=== PATIENT | female | born 1950 | race Caucasian/White ===

== ENCOUNTER → 2018-05-04 | Outpatient (CLI) | payer MEDICARE, BC ==
--- NOTE | 2018-05-04 14:56 | REP ---
Bilateral mammogram with 3D tomosynthesis, diagnostic mammogram left breast and left breast ultrasound} Bilateral mammogram performed with 3D tomosynthesis. The patient has had a palpable lump in the inferomedial left breast since the January 2018. The area is marked on the skin with a triangular marker. Additional spot compression views of that area are performed. Moderate fibroglandular tissue is again seen bilaterally. There is no change since the prior study of 12/13/2010. No new mass or architectural distortion is seen. No clustered microcalcifications are seen. Real-time sonographic evaluation of left breast performed at the site of the palpable lump in the region of about 8-o'clock position, left breast. No cystic or solid nodule is seen. IMPRESSION: BIRADS 2: BI-RADS/ACR category 2 mammogram. Benign Findings. ACR 2 benign. No mass or clustered microcalcifications. There is no mammographic or sonographic evidence of a mass at the site of the reported palpable abnormality in the region of 8 o'clock left breast. Negative mammogram and ultrasound should not deter biopsy if there is a clinically suspicious palpable mass present. Followup mammogram recommended in 1 year. Electronically Signed by Nathan Neely MD 05/04/2018 03:29 P
== END ==
LOC: M RAD 13:00
PROVIDERS: ATTEND Nurse Practitioner Family
DX: Z12.31 Encounter for screening mammogram for malignant neoplasm of breast (principal)
CPT/HCPCS: 76642; 77066; G0279

== ENCOUNTER → 2019-06-11 | Outpatient (REF) | LOC: M LABCFH 14:30 | PROVIDERS: ATTEND Internal Medicine | DX: L98.9 Disorder of the skin and subcutaneous tissue, unspecified (principal) ==

== ENCOUNTER → 2019-09-29 | Outpatient (CLI) | payer MEDICARE, BC ==
--- NOTE | 2019-10-02 12:10 | REPMRS ---
Patient History The patient states she had a clinical breast exam in June 2019. Patient is postmenopausal, has history of skin cancer at age 69, has history of ovarian cancer at age 59, and has history of cancer in the left breast at age 49. Family history of colorectal cancer at age 86 in mother, unknown cancer at age 85 in father, unknown cancer at age 87 in maternal uncle. Digital Woman Screen Mammo: September 29, 2019 - Exam #: [id number] Bilateral CC and MLO view(s) were taken. Technologist: Kya Conway, Technologist Prior study comparison: May 04, 2018, digital mammo diagnostic bilateral, performed at [facility]. September 18, 2016, bilateral digital mammo screening bilat, performed at [facility]. December 12, 2014, bilateral digital mammo screening bilat, performed at [facility]. FINDINGS: There are scattered fibroglandular densities. The Volpara volumetric breast density category is:B. There are stable post treatment changes in the left breast. There has been no change in the appearance of the mammogram from the prior studies. There is a mild amount of scattered fibroglandular density which is fairly symmetric. There is no interval development of dominant mass, architectural distortion, or grouped microcalcification suggestive of malignancy. 3-D tomosynthesis shows no additional findings. Assessment: BI-RADS/ACR category 2 mammogram. Benign Findings. Recommendation Routine screening mammogram of both breasts in 1 year (for women over age 40). This mammogram was interpreted with the aid of an FDA-approved computer-aided dectection system. Electronically Signed By: Michael Friedman MD 10/02/19 [id number]
== END ==
LOC: M WHC 12:36
PROVIDERS: ATTEND Physician Assistant Medical
DX: Z12.31 Encounter for screening mammogram for malignant neoplasm of breast (principal); Z85.3 Personal history of malignant neoplasm of breast

== ENCOUNTER 2020-05-02 12:10 | Day surgery (SDC) | payer MEDICARE, BC ==
[~2020-05-02] VITALS: Ht 160 cm; Wt 67.6 kg
[~2020-05-02 12:10] MED LIST: BUSP10TA PO; CITA10TA5 PO; HYDR-3363 PO; LIDOCAINE 2% 100MG/5ML SDV (FOR ANES.) As Ordered ONE; NS 1,000 ML IV ONE; PANT40TA29 PO; propofoL 200 MG/20 ML VIAL As Ordered ONE
--- NOTE | 2020-05-02 13:25 | ROOR ---
Patient Name: Lilian Ro Procedure Date: 05/02/2020 1:13 PM Date of : 1950 Age: 69 Room: [facility] Gender: Female Note Status: Finalized Procedure: Upper GI endoscopy Indications: Heartburn, 1 episode of Hematemesis (in late 2019)-resolved Providers: Garth MEDINA MD Referring MD: Emiliana OBRIEN MD Requesting Provider: Medicines: Monitored Anesthesia Care Complications: No immediate complications. Procedure: Pre-Anesthesia Assessment: - The heart rate, respiratory rate, oxygen saturations, blood pressure, adequacy of pulmonary ventilation, and response to care were monitored throughout the procedure. The Endoscope was introduced through the mouth, and advanced to the second part of duodenum. The upper GI endoscopy was accomplished without difficulty. The patient tolerated the procedure well. Findings: The examined esophagus was normal. Very small (insignificant) Hiatal Hernia. The entire examined stomach was normal. The examined duodenum was normal. Impression: - Normal esophagus. - Very small (insignificant) Hiatal Hernia. - Normal stomach. - Normal examined duodenum. - No specimens collected. Recommendation: - Follow an antireflux regimen. - Observe patient's clinical course. Procedure Code(s): --- Professional --- 58614, Esophagogastroduodenoscopy, flexible, transoral; diagnostic, including collection of specimen(s) by brushing or washing, when performed (separate procedure) Diagnosis Code(s): --- Professional --- K92.0, Hematemesis R12, Heartburn CPT copyright 2019 [employer]. All rights reserved. The codes documented in this report are preliminary and upon fence installer foreman review may be revised to meet current compliance requirements. Garth Medina MD Garth MEDINA MD 05/02/2020 1:24:57 PM Electronically signed by Garth MEDINA MD Number of Addenda: 0 Note Initiated On: 05/02/2020 1:13 PM Estimated Blood Loss: Estimated blood loss: none.
[2020-05-02 13:55] VITALS: BP 130/81
== END 2020-05-02 14:08 | disposition home or self-care (01) ==
LOC: M OPP 12:10
PROVIDERS: ATTEND Internal Medicine Gastroenterology
DX: K44.9 Diaphragmatic hernia without obstruction or gangrene (principal); R12 Heartburn; K92.0 Hematemesis; Z88.0 Allergy status to penicillin; Z88.5 Allergy status to narcotic agent; Z88.6 Allergy status to analgesic agent; Z91.040 Latex allergy status; Z79.899 Other long term (current) drug therapy; Z87.19 Personal history of other diseases of the digestive system; Z85.3 Personal history of malignant neoplasm of breast; Z85.43 Personal history of malignant neoplasm of ovary; Z80.0 Family history of malignant neoplasm of digestive organs

== ENCOUNTER → 2020-11-29 | Outpatient (CLI) | payer MEDICARE, BC ==
[~2020-11-29] MED LIST changes: -LIDOCAINE 2% 100MG/5ML SDV (FOR ANES.) As Ordered ONE; -NS 1,000 ML IV ONE; -propofoL 200 MG/20 ML VIAL As Ordered ONE
--- NOTE | 2020-11-29 12:54 | REPMRS ---
Patient History The patient states she had a clinical breast exam . Patient is postmenopausal, has history of other cancer at age 69, has history of ovarian cancer at age 59, and has history of cancer in the left breast at age 49. Family history of colorectal cancer at age 86 in mother, unknown cancer at age 85 in father, unknown cancer at age 87 in maternal uncle. Radiation therapy. No Hormone Replacement TherapyTomosynthesis is performed. Volpara breast density is b. Patient states no breast complaints today. Patient has signed MRS History Sheet. Digital Woman Screen Mammo: November 29, 2020 - Exam #: [id number] Bilateral CC and MLO view(s) were taken. Technologist: Faith Dong Slackline Operator Prior study comparison: September 29, 2019, bilateral digital woman screen mammo performed at [facility]. May 04, 2018, digital mammo diagnostic bilateral, performed at [facility]. FINDINGS: The breast tissue is heterogeneously dense. This may lower the sensitivity of mammography. There has been no change in the appearance of the mammogram from the prior studies. There is a moderate amount of residual fibroglandular tissue which is fairly symmetric. There is no interval development of dominant mass, areas of architectural distortion, or clustered microcalcification typical of malignancy. Assessment: BI-RADS/ACR category 1 mammogram. Negative Mammogram. Recommendation Routine screening mammogram in 1 year (for women over age 40). This mammogram was interpreted with the aid of an FDA-approved computer-aided dectection system. Electronically Signed By: Nathan Neely MD 11/29/20 [id number]
== END ==
LOC: M WHC 12:07
PROVIDERS: ATTEND Nurse Practitioner
DX: Z12.31 Encounter for screening mammogram for malignant neoplasm of breast (principal); Z78.0 Asymptomatic menopausal state; Z85.89 Personal history of malignant neoplasm of other organs and systems; Z85.43 Personal history of malignant neoplasm of ovary; Z85.3 Personal history of malignant neoplasm of breast

== ENCOUNTER → 2021-01-26 | Outpatient (CLI) | payer MEDICARE, BC ==
[~2021-01-26] MED LIST changes: +ACET-897 PO; +ALPR0.25 PO; -CITA10TA5 PO; +CITA10TA7 PO; +GABA-1171 PO
== END ==
LOC: M WHC 12:47
PROVIDERS: ATTEND Nurse Practitioner
DX: R92.2 Inconclusive mammogram (principal)

== ENCOUNTER → 2021-03-12 | Outpatient (CLI) | payer MEDICARE, BC ==
[~2021-03-12] MED LIST changes: -ACET-897 PO; -ALPR0.25 PO; -GABA-1171 PO
== END ==
LOC: M PLARAD 10:34
PROVIDERS: ATTEND Internal Medicine Pulmonary Disease
DX: R91.8 Other nonspecific abnormal finding of lung field (principal); I65.23 Occlusion and stenosis of bilateral carotid arteries; R59.0 Localized enlarged lymph nodes; N63.20 Unspecified lump in the left breast, unspecified quadrant; J43.2 Centrilobular emphysema; I70.0 Atherosclerosis of aorta; K57.90 Diverticulosis of intestine, part unspecified, without perforation or abscess without bleeding; E27.8 Other specified disorders of adrenal gland
CPT/HCPCS: 78815; A9552

== ENCOUNTER 2021-04-04 06:22 | Day surgery (SDC) | payer MEDICARE, BC ==
[~2021-04-04] VITALS: Ht 160 cm; Wt 66.7 kg
[~2021-04-04 06:22] MED LIST changes: +ALBUTEROL SULFATE 2.5 MG/0.5 ML INH NEB SOLN NEB ONE; +ALPR0.25 PO; +GABA-1171 PO; +LIDOCAINE 4% INJ 5ML AMP NEB ONE; +LR 1,000 ML IV ONE
[2021-04-04] MEDS ORDERED: ACET-897 PO (06:40)
[2021-04-04] MEDS ORDERED: MIDAZOLAM INJ 2MG/2ML VIAL (J2250 PER 1MG) As Ordered ONE (07:08)
[2021-04-04] MEDS ORDERED: fentaNYL 100 MCG/2 ML INJECTION As Ordered ONE (07:08)
[2021-04-04] MEDS ORDERED: propofoL 200 MG/20 ML VIAL As Ordered ONE (07:09)
[2021-04-04] MEDS ORDERED: THROMBIN SOLN 20,000 UNITS KIT As Ordered ONE (07:12)
[2021-04-04] MEDS ORDERED: LIDOCAINE 1% SDV 30ML VIAL As Ordered ONE (07:13)
[2021-04-04] MEDS ORDERED: LIDOCAINE VISCOUS 2% SOLN 15ML UDC As Ordered ONE (07:13)
[2021-04-04] MEDS ORDERED: EPINEPHrine 1MG/10ML SYRINGE 1.5IN As Ordered ONE (07:13)
[2021-04-04] MEDS ORDERED: ROCURONIUM BROMIDE 50 MG/5 ML VIAL As Ordered ONE (07:14)
[2021-04-04] MEDS ORDERED: LIDOCAINE 2% 100MG/5ML SDV (FOR ANES.) As Ordered ONE (07:14)
[2021-04-04] MEDS ORDERED: CETACAINE SPRAY 5GM As Ordered ONE (07:19)
[2021-04-04] MEDS ORDERED: THROMBIN SOLN 5,000 UNITS VIAL As Ordered ONE (07:19)
[2021-04-04] MEDS ORDERED: dexameTHASONE 4 MG/ML 1ML VIAL (J1100 PER 1MG) As Ordered ONE (07:47)
[2021-04-04] MEDS ORDERED: ONDANSETRON 4MG/2ML VIAL As Ordered ONE (07:47)
[2021-04-04] MEDS ORDERED: SUGAMMADEX SODIUM 500 MG/5 ML VIAL (BRIDION) As Ordered ONE (07:57)
[2021-04-04] MEDS ORDERED: LEVALBUTEROL 1.25 MG/0.5 ML CONCENTRATE NEB INH ONE (08:35)
[2021-04-04] MEDS ORDERED: LR 1,000 ML IV SCH (08:35)
[2021-04-04] MEDS ORDERED: ALBUTEROL SULFATE 2.5 MG/0.5 ML INH NEB SOLN INH ONE (08:35)
[2021-04-04] MEDS ORDERED: ONDANSETRON 4MG/2ML VIAL IV PRN (08:35)
[2021-04-04 09:45] VITALS: BP 130/77
[2021-04-09] MEDS ORDERED: MORP1SOL4 PO (14:55)
== END 2021-04-04 10:15 | disposition home or self-care (01) ==
LOC: M SDC 06:22
PROVIDERS: ATTEND Internal Medicine Pulmonary Disease
DX: C78.02 Secondary malignant neoplasm of left lung (principal); R59.0 Localized enlarged lymph nodes; Z85.3 Personal history of malignant neoplasm of breast; Z85.43 Personal history of malignant neoplasm of ovary; M25.551 Pain in right hip; F41.9 Anxiety disorder, unspecified; J44.9 Chronic obstructive pulmonary disease, unspecified; Z87.891 Personal history of nicotine dependence; Z92.21 Personal history of antineoplastic chemotherapy; Z92.3 Personal history of irradiation; Z79.899 Other long term (current) drug therapy
CPT/HCPCS: 31624; 31628; 88104; 88305; 88341; 88342; J1100; J2250; J2405; J3010

== ENCOUNTER → 2021-04-09 | Outpatient (RCR) | payer MEDICARE, BC ==
[~2021-04-09] MED LIST changes: +ACET-897 PO; -ALBUTEROL SULFATE 2.5 MG/0.5 ML INH NEB SOLN NEB ONE; -LIDOCAINE 4% INJ 5ML AMP NEB ONE; -LR 1,000 ML IV ONE; +MORP1SOL4 PO
== END ==
LOC: M ONCR 04-04 10:13
PROVIDERS: ATTEND General Practice
DX: C79.51 Secondary malignant neoplasm of bone (principal)
CPT/HCPCS: 77280; 77290; 77307; 77334; 77412; G0463

== ENCOUNTER 2021-04-13 13:16 | Outpatient (RCR) | payer MEDICARE, BC ==
[2021-04-13] MEDS ORDERED: MORP1SOL4 PO (13:56)
[2021-04-13] MEDS ORDERED: MORP20SO PO (15:58)
== END 2021-05-10 ==
LOC: M ONCR 13:16
PROVIDERS: ATTEND General Practice
DX: C79.51 Secondary malignant neoplasm of bone (principal)